=== PATIENT | male | born 1995 | race African-American/Black ===

== ENCOUNTER 2016-06-02 07:02 | Emergency (ER) | payer OTHER ==
[~2016-06-02] VITALS: Ht 185.4 cm; Wt 79.8 kg
[2016-06-02] MEDS ORDERED: FLUORESCEIN OPHTH 1 MG STRIP OS ONE (07:45)
[2016-06-02] MEDS ORDERED: TETRACAINE 0.5% OPHTH SOLN 4ML OS ONE (07:45)
[2016-06-02] MEDS ORDERED: CYCL1SOL OS (08:42)
[2016-06-02] MEDS ORDERED: OCUF0.3D OS (08:42)
[2016-06-02 09:03] VITALS: BP 141/77
== END 2016-06-02 09:04 | disposition home or self-care (01) ==
LOC: M ED 07:45
DX: H20.012 Primary iridocyclitis, left eye (principal); G47.30 Sleep apnea, unspecified; F17.200 Nicotine dependence, unspecified, uncomplicated